=== PATIENT | male | born 1950 | race Caucasian/White ===

== ENCOUNTER 2018-01-05 21:48 | Emergency (ER) | payer MEDICARE, OTHER ==
[~2018-01-05] VITALS: Ht 177.8 cm; Wt 88.5 kg
--- NOTE | 2018-01-05 21:48 | NUR ---
pt seen and eval by er md, awiting further tests.
[2018-01-05 21:59] VITALS: BP 170/100
[2018-01-05] MEDS ORDERED: KETOROLAC TROMETHAMINE INJ 30 MG/ML VIAL IV ONE (22:30)
[2018-01-05] MEDS ORDERED: IV NS 0.9% 1,000 ML BAG IV ONE (22:30)
[2018-01-05] MEDS ORDERED: ONDANSETRON HCL/PF 4 MG/2 ML VIAL IVP ONE (22:30)
[2018-01-05] MEDS ORDERED: MORPHINE SULFATE INJ 2 MG/ML DISP.SYRIN IV ONE (22:30)
[2018-01-05 23:06] LABS: BASOPHILS # (AUTO) 0.1 /CMM (0.0-0.2); BASOPHILS % (AUTO) 0.6 % (0.0-2.0); EOSINOPHILS % (AUTO) 1.9 % (0.0-6.0); HEMATOCRIT 39 % (39-51); HEMOGLOBIN 12.9 g/dL (13.5-17.5); LYMPHOCYTES % (AUTO) 17.4 % (20.0-44.0); MEAN CORPUSCULAR HGB CONC 33 g/dl (31.0-36.0); MEAN CORPUSCULAR VOLUME 101 fL (80-96); MONOCYTES % (AUTO) 8.6 % (2.0-12.0); NEUTROPHILS % (AUTO) 71.5 % (43.0-81.0); PLATELET COUNT (AUTO) 333 /CMM (150-450); RED BLOOD CELL COUNT(AUTO) 3.87 MIL/uL (4.5-6.0); WHITE BLOOD COUNT (AUTO) 11.2 K/uL (4.3-11.0)
[2018-01-05 23:12] LABS: CALCIUM, SERUM 9.6 mg/dL (8.5-10.1); POTASSIUM 3.7 mmol/L (3.5-5.1)
[2018-01-05] MEDS ORDERED: ONDANSETRON HCL/PF 4 MG/2 ML VIAL ONE (23:13)
[2018-01-05] MEDS ORDERED: KETOROLAC TROMETHAMINE INJ 30 MG/ML VIAL ONE (23:13)
[2018-01-05] MEDS ORDERED: MORPHINE SULFATE INJ 2 MG/ML DISP.SYRIN ONE (23:14)
[2018-01-05 23:15] LABS: APPEARANCE,URINE CLOUDY (CLEAR); BILIRUBIN,URINE NEGATIVE (NEGATIVE); BLOOD, URINE 3+ Ery/uL (NEGATIVE); COLOR,URINE YELLOW (YELLOW); KETONES,URINE NEGATIVE (NEGATIVE); LEUKOCYTE ESTERASE ,URINE 3+ (NEGATIVE); NITRITE, URINE NEGATIVE (NEGATIVE); PH,URINE 5.5 (5.0-8.0); PROTEIN,URINE 2+ mg/dl (NEGATIVE); UGLUCOSE NEGATIVE (NEGATIVE); UROBILINOGEN,URINE 0.2 EU/dL (0.2)
[2018-01-05 23:19] LABS: ALBUMIN 3.6 g/dL (3.4-5.0); BILIRUBIN,DIRECT 0.1 mg/dL (0.0-0.2); BILIRUBIN,TOTAL 0.4 mg/dL (0.2-1.0); TOTAL PROTEIN, SERUM 7.4 g/dL (6.4-8.2)
[2018-01-05 23:33] LABS: BACTERIA,URINE Rare /HPF (None Seen); SQUAMOUS EPITHELIAL CELL,UR Few /HPF (None Seen); WBC,URINE 21-50 /HPF (0-3)
--- NOTE | 2018-01-06 00:26 | NUR ---
Patient does not wish to proceed with medical care recommended by Dr. albrecht ). Patient given information related to possible complications, up to and including , which could occur as a result of leaving the hospital at this time. Patient verbalizes understanding of risks involved due to leaving against medical advice. Patient has signed AMA form.
== END 2018-01-06 00:26 | disposition left against medical advice (07) ==
LOC: ER 21:49
DX: N13.2 Hydronephrosis with renal and ureteral calculous obstruction (principal); I10 Essential (primary) hypertension; E11.9 Type 2 diabetes mellitus without complications; F10.10 Alcohol abuse, uncomplicated; Y90.9 Presence of alcohol in blood, level not specified; Z87.442 Personal history of urinary calculi
CPT/HCPCS: 36415; 80048-TC; 80076-TC; 81000-TC; 83690-TC; 85025-TC; 85730-TC; 87086-TC; 87186-TC; A4606; J1885; J2270; J2405; J7030; Z7610

== ENCOUNTER 2021-07-27 11:51 | Inpatient (IN) | payer OTHER ==
[~2021-07-27] VITALS: Ht 180.3 cm; Wt 103.0 kg
[2021-07-27] MEDS ORDERED: METOPROLOL TARTRATE INJ 5 MG/5 ML AMPUL ONE ×2 (12:17→15:10)
[2021-07-27] MEDS ORDERED: ASPIRIN 81 MG TAB.CHEW ONE (12:17)
[2021-07-27] MEDS ORDERED: ASPIRIN 81 MG TAB.CHEW PO ONE (12:30)
[2021-07-27] MEDS ORDERED: METOPROLOL TARTRATE INJ 5 MG/5 ML AMPUL IV ONE ×2 (12:30→15:00)
[2021-07-27 12:38] LABS: BASOPHILS % (AUTO) 0.3 % (0.0-2.0); EOSINOPHILS % (AUTO) 1.3 % (0.0-6.0); HEMATOCRIT 47 % (39-51); HEMOGLOBIN 15.5 g/dL (13.5-17.5); LYMPHOCYTES # (AUTO) 1.3 K/uL (0.8-4.8); LYMPHOCYTES % (AUTO) 13.6 % (20.0-44.0); MEAN CORPUSCULAR HGB CONC 33 g/dl (31.0-36.0); MEAN CORPUSCULAR VOLUME 94 fL (80-96); MONOCYTES # (AUTO) 0.6 K/uL (0.1-1.30); MONOCYTES % (AUTO) 6.6 % (2.0-12.0); NEUTROPHILS # (AUTO) 7.6 K/uL (1.8-8.9); NEUTROPHILS % (AUTO) 78.2 % (43.0-81.0); PLATELET COUNT (AUTO) 241 K/uL (150-450); RED BLOOD CELL COUNT(AUTO) 5.07 MIL/uL (4.5-6.0); WHITE BLOOD COUNT (AUTO) 9.7 K/uL (4.3-11.0)
[2021-07-27] MEDS ORDERED: ROSU20TA32 PO (12:46)
[2021-07-27] MEDS ORDERED: NEBI20TA2 PO (12:46)
[2021-07-27] MEDS ORDERED: GLIM4TAB37 PO (12:46)
[2021-07-27] MEDS ORDERED: ALLO100T PO (12:46)
[2021-07-27] MEDS ORDERED: LOSA100T31 PO (12:46)
[2021-07-27] MEDS ORDERED: INSU300I SQ (12:46)
[2021-07-27] MEDS ORDERED: ASPI-1420 PO (12:46)
[2021-07-27 13:08] LABS: CALCIUM, SERUM 8.7 mg/dL (8.5-10.1); CARBON DIOXIDE 24 mmol/L (21-32); CHLORIDE 100 mmol/L (98-107); CREATININE 1.3 mg/dL (0.6-1.3); GLUCOSE 338 mg/dL (74-106); POTASSIUM 4.1 mmol/L (3.5-5.1); SODIUM SERUM 133 mmol/L (136-145); UREA NITROGEN, BLOOD 21 mg/dL (7-18)
[2021-07-27] MEDS ORDERED: FUROSEMIDE 40 MG/4 ML VIAL IV ONE (15:00)
[2021-07-27] MEDS ORDERED: FUROSEMIDE 40 MG/4 ML VIAL ONE (15:10)
[2021-07-27] MEDS ORDERED: hydrALAZINE HCL IV 20 MG VIAL ONE (17:48)
[2021-07-27] MEDS ORDERED: hydrALAZINE HCL IV 20 MG VIAL IV ONE (18:00)
[2021-07-27] MEDS ORDERED: hydrALAZINE HCL 50 MG TABLET PO PRN (18:00)
[2021-07-27] MEDS ORDERED: Z GUARD REMEDY 4 OZ OINT TP PRN (19:30)
[2021-07-27] MEDS ORDERED: ACETAMINOPHEN 325 MG TABLET PO PRN (19:30)
[2021-07-27 20:00] VITALS: BP 165/95
[2021-07-27] MEDS: LOSARTAN POTASSIUM 50 MG TABLET PO SCH (20:01)
[2021-07-27] MEDS: BLOOD SUGAR DIAGNOSTIC 1 EACH STRIP IN SCH (21:39)
[2021-07-27] MEDS: INSULIN REGULAR, HUMAN 100 UNIT/ML 3 ML VIAL SQ PRN (21:50)
[2021-07-27] MEDS ORDERED: INSULIN GLARGINE, 100 UNIT/ML CARTRIDGE SQ SCH (22:00)
[2021-07-27] MEDS ORDERED: DEXTROSE 50%-WATER 50 ML DISP.SYRIN IV PRN (22:00)
[2021-07-27] MEDS: ATORVASTATIN 40 MG TABLET PO SCH (22:37)
[2021-07-28] VITALS: BP 155/100
[2021-07-28 04:00] VITALS: BP 164/113
[2021-07-28 07:15] LABS: BASOPHILS # (AUTO) 0.1 K/uL (0.0-0.2); BASOPHILS % (AUTO) 0.5 % (0.0-2.0); EOSINOPHILS % (AUTO) 1.3 % (0.0-6.0); HEMATOCRIT 48 % (39-51); HEMOGLOBIN 15.9 g/dL (13.5-17.5); LYMPHOCYTES % (AUTO) 18.3 % (20.0-44.0); MEAN CORPUSCULAR HGB CONC 33 g/dl (31.0-36.0); MEAN CORPUSCULAR VOLUME 93 fL (80-96); MONOCYTES # (AUTO) 1.1 K/uL (0.1-1.30); MONOCYTES % (AUTO) 10.1 % (2.0-12.0); NEUTROPHILS # (AUTO) 7.7 K/uL (1.8-8.9); NEUTROPHILS % (AUTO) 69.8 % (43.0-81.0); PLATELET COUNT (AUTO) 276 K/uL (150-450); RED BLOOD CELL COUNT(AUTO) 5.14 MIL/uL (4.5-6.0); WHITE BLOOD COUNT (AUTO) 11.1 K/uL (4.3-11.0)
[2021-07-28] MEDS: BLOOD SUGAR DIAGNOSTIC 1 EACH STRIP IN SCH ×6 (07:29→22:36)
[2021-07-28 07:32] LABS: ALANINE AMINOTRANSFERASE 18 U/L (12-78); ALBUMIN 2.8 g/dL (3.4-5.0); ALKALINE PHOSPHATASE 99 U/L (46-116); ASPARTATE AMINOTRANSFERASE 5 U/L (15-37); BILIRUBIN,TOTAL 2.1 mg/dL (0.2-1.0); CALCIUM, SERUM 9.3 mg/dL (8.5-10.1); CARBON DIOXIDE 29 mmol/L (21-32); CHLORIDE 99 mmol/L (98-107); CREATININE 1.6 mg/dL (0.6-1.3); GLUCOSE 343 mg/dL (74-106); MAGNESIUM 2.1 mg/dL (1.8-2.4); PHOSPHORUS 4.2 mg/dL (2.5-4.9); POTASSIUM 3.7 mmol/L (3.5-5.1); SODIUM SERUM 136 mmol/L (136-145); TOTAL PROTEIN, SERUM 6.9 g/dL (6.4-8.2); UREA NITROGEN, BLOOD 22 mg/dL (7-18)
[2021-07-28 07:40] LABS: CHOLESTEROL 426 mg/dL (<200); HDL CHOLESTEROL 48 mg/dL (40-60); LDL 237 mg/dL (0-99); THYROID STIMULATING HORMONE 3.991 uIU/mL (0.358-3.74); TRIGLYCERIDES 735 mg/dL (30-150)
[2021-07-28] MEDS: INSULIN REGULAR, HUMAN 100 UNIT/ML 3 ML VIAL SQ PRN ×3 (07:43→21:46)
[2021-07-28 08:00] VITALS: BP 116/92
[2021-07-28] MEDS: GLIMEPIRIDE 4 MG TABLET PO SCH ×2 (08:12→16:25)
[2021-07-28] MEDS: ASPIRIN EC 81 MG TABLET.DR PO SCH (08:12)
[2021-07-28] MEDS: CARVEDILOL 12.5 MG TABLET PO SCH ×2 (08:13→16:26)
[2021-07-28] MEDS: LOSARTAN POTASSIUM 50 MG TABLET PO SCH (08:14)
[2021-07-28] MEDS: ALLOPURINOL 100 MG TABLET PO SCH (08:16)
[2021-07-28] MEDS ORDERED: ASPIRIN EC 81 MG TABLET.DR PO SCH (09:00)
[2021-07-28] MEDS ORDERED: INSULIN REGULAR, HUMAN 100 UNIT/ML 10 ML VIAL SQ ONE (11:30)
[2021-07-28 12:00] VITALS: BP 117/79
[2021-07-28] MEDS: INSULIN GLARGINE, 100 UNIT/ML CARTRIDGE SQ SCH ×2 (14:42→22:38)
[2021-07-28 16:00] VITALS: BP 126/68
[2021-07-28] MEDS ORDERED: DEXTROSE 50%-WATER 50 ML DISP.SYRIN IV PRN (18:00)
[2021-07-28 20:00] VITALS: BP 106/49
[2021-07-28] MEDS: ATORVASTATIN 40 MG TABLET PO SCH (22:32)
[2021-07-29] VITALS: BP 140/84
[2021-07-29] MEDS: BLOOD SUGAR DIAGNOSTIC 1 EACH STRIP IN SCH ×5 (00:42→12:29)
[2021-07-29 04:00] VITALS: BP 138/60
[2021-07-29] MEDS: INSULIN REGULAR, HUMAN 100 UNIT/ML 3 ML VIAL SQ PRN ×3 (04:32→12:31)
[2021-07-29 07:16] LABS: BASOPHILS # (AUTO) 0.1 K/uL (0.0-0.2); BASOPHILS % (AUTO) 0.4 % (0.0-2.0); EOSINOPHILS % (AUTO) 1.5 % (0.0-6.0); HEMATOCRIT 43 % (39-51); HEMOGLOBIN 14.1 g/dL (13.5-17.5); LYMPHOCYTES # (AUTO) 2.2 K/uL (0.8-4.8); LYMPHOCYTES % (AUTO) 18.7 % (20.0-44.0); MEAN CORPUSCULAR HGB CONC 33 g/dl (31.0-36.0); MEAN CORPUSCULAR VOLUME 94 fL (80-96); MONOCYTES # (AUTO) 0.9 K/uL (0.1-1.30); MONOCYTES % (AUTO) 7.8 % (2.0-12.0); NEUTROPHILS # (AUTO) 8.4 K/uL (1.8-8.9); NEUTROPHILS % (AUTO) 71.6 % (43.0-81.0); PLATELET COUNT (AUTO) 243 K/uL (150-450); RED BLOOD CELL COUNT(AUTO) 4.58 MIL/uL (4.5-6.0); WHITE BLOOD COUNT (AUTO) 11.7 K/uL (4.3-11.0)
[2021-07-29 07:45] LABS: ALANINE AMINOTRANSFERASE 11 U/L (12-78); ALBUMIN 2.4 g/dL (3.4-5.0); ALKALINE PHOSPHATASE 80 U/L (46-116); ASPARTATE AMINOTRANSFERASE 5 U/L (15-37); BILIRUBIN,TOTAL 1.3 mg/dL (0.2-1.0); CARBON DIOXIDE 28 mmol/L (21-32); CHLORIDE 101 mmol/L (98-107); CREATININE 1.7 mg/dL (0.6-1.3); GLUCOSE 224 mg/dL (74-106); MAGNESIUM 2.1 mg/dL (1.8-2.4); PHOSPHORUS 5.2 mg/dL (2.5-4.9); POTASSIUM 3.5 mmol/L (3.5-5.1); SODIUM SERUM 137 mmol/L (136-145); TOTAL PROTEIN, SERUM 5.9 g/dL (6.4-8.2); UREA NITROGEN, BLOOD 37 mg/dL (7-18)
[2021-07-29 08:00] VITALS: BP 142/83
[2021-07-29] MEDS: LOSARTAN POTASSIUM 50 MG TABLET PO SCH (09:25)
[2021-07-29 09:26] VITALS: BP 142/83
[2021-07-29] MEDS: GLIMEPIRIDE 4 MG TABLET PO SCH (09:26)
[2021-07-29] MEDS: ALLOPURINOL 100 MG TABLET PO SCH (09:26)
[2021-07-29] MEDS: CARVEDILOL 12.5 MG TABLET PO SCH (09:26)
[2021-07-29] MEDS: ASPIRIN EC 81 MG TABLET.DR PO SCH (09:26)
[2021-07-29 13:07] LABS: *SPE A/G RATIO 0.8 (0.7-1.7); *SPE ALPHA-1-GLOBULIN 0.2 g/dL (0.0-0.4); *SPE ALPHA-2-GLOBULIN 1.6 g/dL (0.4-1.0); *SPE BETA GLOBULIN 1.1 g/dL (0.7-1.3); *SPE M-SPIKE Not Observed g/dL (Not Observed)
== END 2021-07-29 12:54 | disposition home or self-care (01) | DRG 304 ==
LOC: ER 12:04 → TELE1 18:15 → MEDSG1 07-29 08:43
PROVIDERS: ADMIT Nurse Practitioner Acute Care; ATTEND Nurse Practitioner Acute Care
PROC: 05H933Z Insertion of Infusion Device into Right Brachial Vein, Percutaneous Approach (ICD-10-PCS; principal; 2021-07-27)
DX: I16.0 Hypertensive urgency (principal); I50.33 Acute on chronic diastolic (congestive) heart failure; N17.0 Acute kidney failure with tubular necrosis; E87.1 Hypo-osmolality and hyponatremia; E11.65 Type 2 diabetes mellitus with hyperglycemia; I13.0 Hypertensive heart and chronic kidney disease with heart failure and stage 1 through stage 4 chronic kidney disease, or unspecified chronic kidney disease; E11.22 Type 2 diabetes mellitus with diabetic chronic kidney disease; Z20.822 Contact with and (suspected) exposure to COVID-19; E78.5 Hyperlipidemia, unspecified; Z87.442 Personal history of urinary calculi; Z79.899 Other long term (current) drug therapy; Z88.0 Allergy status to penicillin; Z79.84 Long term (current) use of oral hypoglycemic drugs; Z79.4 Long term (current) use of insulin; Z79.82 Long term (current) use of aspirin; E66.01 Morbid (severe) obesity due to excess calories; Z68.31 Body mass index [BMI] 31.0-31.9, adult; G47.33 Obstructive sleep apnea (adult) (pediatric); M10.9 Gout, unspecified; N18.9 Chronic kidney disease, unspecified; E86.1 Hypovolemia; R25.1 Tremor, unspecified; E83.39 Other disorders of phosphorus metabolism; N20.0 Calculus of kidney; K76.0 Fatty (change of) liver, not elsewhere classified
CPT/HCPCS: 36410; 36415; 71045-TC; 76700-TC; 80048-TC; 80053-TC; 80061-TC; 82962-TC; 83735-TC; 83880; 84100-TC; 84155; 84165; 84443-TC; 84484-TC; 85025-TC; 85730-TC; 87081-TC; 93307-TC; C9803; G0378; J0360; J1815; J1940; J3490